=== PATIENT | male | born 1990 | race Caucasian/White ===

== ENCOUNTER → 2019-11-21 | Outpatient (CLI) | payer MEDICAID ==
[~2019-11-21] MED LIST: OMEP20TA2 PO; P20 PO; TRAM50TA3 PO
== END | disposition home or self-care (01) ==
LOC: LAB 14:21
PROVIDERS: ATTEND Ophthalmology
DX: Z01.818 Encounter for other preprocedural examination (principal); Z11.59 Encounter for screening for other viral diseases; H26.9 Unspecified cataract
CPT/HCPCS: C9803; U0003

== ENCOUNTER → 2019-11-25 | Day surgery (SDC) | payer MEDICAID ==
[~2019-11-25] VITALS: Ht 167.6 cm; Wt 74.8 kg
[~2019-11-25] MED LIST changes: +ACETYLCHOLINE CHLORIDE INTRAOCULAR SOLUTION 1:100 ELECTROLYTE DILUENT IO ONE; +BALANCED SALT IRRIG SOLN 15ML ONE; +BALANCED SALT IRRIG SOLN COMB1 500ML OP SCH; +BUPIVACAINE HCL/PF 0.75% (7.5MG/ML) 10ML ONE; +CEFAZOLIN SODIUM 1000MG/VIAL ONE; +CIPROFLOXACIN 0.3% OPHTH SOLN 2.5ML ONE; +CYCLOPENTOLATE HCL 1% OPHTH DROPS 2ML ONE; +CYCLOPENTOLATE HCL 1% OPHTH DROPS 2ML RIGHTEYE ONE; +DEXAMETHASONE 4MG/ML 1ML VIAL ONE; +FENTANYL CITRATE/PF 50MCG/ML 2ML VIAL ONE; +HYALURONATE SODIUM 10 MG/ML 0.55ML SYRINGE IO ONE; +KETOROLAC 30MG/ML VIAL ONE; +LACTATED RINGERS 1,000 ML IV SCH; +LIDOCAINE HCL 1% 20ML VIAL (Pyxis) INJ ONE; +LIDOCAINE HCL 2%/EPINEPHRINE 1:100,000 20 ML VIAL INFIL ONE; +LIDOCAINE HCL/PF 2% 20 MG/ML 10ML VIAL ONE; +MIDAZOLAM HCL 2 MG/2 ML VIAL ONE; +NEO/POLYMYX B SULF/DEXAMETH OPHTH OINT 3.5GM ONE; +PHENYLEPHRINE HCL 10% OPHTH DROPS 5ML ONE; +PHENYLEPHRINE HCL 10% OPHTH DROPS 5ML RIGHTEYE ONE; +PREDNISOLONE ACETATE 1% OPHTH DROPS 5ML ONE; +PROPOFOL 200MG/20ML VIAL IV ONE; +SODIUM CHLORIDE 0.9% 10ML VIAL ONE; +TETRACAINE 0.5% OPHTH DROPS 4ML ONE; +TRIAMCINOLONE ACETONIDE 40MG/ML 1ML VIAL ONE; +TROPICAMIDE 1% OPHTH DROPS 15ML ONE; +TROPICAMIDE 1% OPHTH DROPS 15ML RIGHTEYE ONE; +TRYPAN BLUE 0.5 ML DISP.SYRIN IO ONE
== END | disposition home or self-care (01) ==
LOC: OR 08:01
PROVIDERS: ATTEND Ophthalmology
DX: H25.89 Other age-related cataract (principal); H21.541 Posterior synechiae (iris), right eye; M06.9 Rheumatoid arthritis, unspecified; Z87.19 Personal history of other diseases of the digestive system; Z79.899 Other long term (current) drug therapy; Z98.890 Other specified postprocedural states
CPT/HCPCS: 66984; 67005; J0690; J1100; J1885; J2250; J2704; J3010; J3301; J3490; Q9957; V2632

== ENCOUNTER 2021-08-23 17:25 | Emergency (ER) | payer MEDICAID ==
[~2021-08-23] VITALS: Ht 170.2 cm; Wt 73.0 kg
[~2021-08-23 17:25] MED LIST changes: -ACETYLCHOLINE CHLORIDE INTRAOCULAR SOLUTION 1:100 ELECTROLYTE DILUENT IO ONE; -BALANCED SALT IRRIG SOLN 15ML ONE; -BALANCED SALT IRRIG SOLN COMB1 500ML OP SCH; -BUPIVACAINE HCL/PF 0.75% (7.5MG/ML) 10ML ONE; -CEFAZOLIN SODIUM 1000MG/VIAL ONE; -CIPROFLOXACIN 0.3% OPHTH SOLN 2.5ML ONE; -CYCLOPENTOLATE HCL 1% OPHTH DROPS 2ML ONE; -CYCLOPENTOLATE HCL 1% OPHTH DROPS 2ML RIGHTEYE ONE; -DEXAMETHASONE 4MG/ML 1ML VIAL ONE; -FENTANYL CITRATE/PF 50MCG/ML 2ML VIAL ONE; -HYALURONATE SODIUM 10 MG/ML 0.55ML SYRINGE IO ONE; -KETOROLAC 30MG/ML VIAL ONE; -LACTATED RINGERS 1,000 ML IV SCH; -LIDOCAINE HCL 1% 20ML VIAL (Pyxis) INJ ONE; -LIDOCAINE HCL 2%/EPINEPHRINE 1:100,000 20 ML VIAL INFIL ONE; -LIDOCAINE HCL/PF 2% 20 MG/ML 10ML VIAL ONE; -MIDAZOLAM HCL 2 MG/2 ML VIAL ONE; -NEO/POLYMYX B SULF/DEXAMETH OPHTH OINT 3.5GM ONE; -PHENYLEPHRINE HCL 10% OPHTH DROPS 5ML ONE; -PHENYLEPHRINE HCL 10% OPHTH DROPS 5ML RIGHTEYE ONE; -PREDNISOLONE ACETATE 1% OPHTH DROPS 5ML ONE; -PROPOFOL 200MG/20ML VIAL IV ONE; -SODIUM CHLORIDE 0.9% 10ML VIAL ONE; -TETRACAINE 0.5% OPHTH DROPS 4ML ONE; -TRIAMCINOLONE ACETONIDE 40MG/ML 1ML VIAL ONE; -TROPICAMIDE 1% OPHTH DROPS 15ML ONE; -TROPICAMIDE 1% OPHTH DROPS 15ML RIGHTEYE ONE; -TRYPAN BLUE 0.5 ML DISP.SYRIN IO ONE
[2021-08-23 18:05] VITALS: BP 122/74
[2021-08-23] MEDS ORDERED: ONDANSETRON HCL 4MG/2ML INJ IV STA (18:05)
[2021-08-23] MEDS ORDERED: PANTOPRAZOLE SODIUM 40 MG/VIAL IV STA (18:05)
[2021-08-23] MEDS ORDERED: MORPHINE SULFATE 4 MG/ML CPJ (NOT FOR IM USE) IV STA (18:05)
[2021-08-23] MEDS ORDERED: MAGNESIUM/ALUMINUM HYDROXIDE/SIMETHICONE 30ML UDC PO STA (18:05)
[2021-08-23] MEDS ORDERED: SODIUM CHLORIDE 0.9% 1,000 ML IV ONE (18:15)
[2021-08-23 19:50] LABS: BASOPHILS % 0.7 % (0.0-2.0); EOSINOPHILS % 0.1 % (0.0-5.0); HEMOGLOBIN. 13.9 g/dL (14.0-18.0); LYMPHOCYTES % 10.4 % (20.0-50.0); MEAN CORPUSCULAR HEMOGLOBIN 27.1 pg (28.0-32.0); MEAN CORPUSCULAR VOLUME 83.8 fL (80.0-94.0); MEAN PLATELET VOLUME 7.3 fl (7.4-10.4); MONOCYTES % 6.3 % (2.0-8.0); NEUTROPHILS % 82.5 % (40.0-76.0); PLATELET 301 x1000/uL (130-400); RED BLOOD CELL COUNT 5.13 mill/uL (4.7-6.1); RED CELL DISTRIBUTION WIDTH 16.9 % (11.6-14.6)
[2021-08-23 19:57] LABS: CHLORIDE 104 mEq/L (98-107)
[2021-08-23 20:06] LABS: ETHANOL BLOOD < 10 mg/dL
[2021-08-23 22:14] LABS: CLARITY URINE CLEAR (CLEAR); COLOR URINE YELLOW (YELLOW); KETONES URINE NEGATIVE (NEGATIVE); LEUKOCYTE ESTERASE URINE TRACE (NEGATIVE); NITRITE URINE NEGATIVE (NEGATIVE); OCCULT BLOOD URINE NEGATIVE (NEGATIVE); PH URINE 7.5 (4.5-8.0); PROTEIN URINE TRACE (NEGATIVE); SPECIFIC GRAVITY URINE 1.027 (1.005-1.030); UROBILINOGEN URINE 0.2 E.U./dL (0.2-1.0)
[2021-08-23 22:27] LABS: *AMPHETAMINES SCREEN URINE NEGATIVE (NEGATIVE); *BARBITURATES SCREEN URINE NEGATIVE (NEGATIVE); *BENZODIAZEPINES SCREEN URINE NEGATIVE (NEGATIVE); *COCAINE SCREEN URINE NEGATIVE (NEGATIVE); CANNABINOID URINE SCREEN PRESUMTIVE POSITIVE (NEGATIVE); METHADONE URINE SCREEN NEGATIVE (NEGATIVE); OPIATES URINE SCREEN NEGATIVE (NEGATIVE); PHENCYCLIDINE URINE SCREEN NEGATIVE (NEGATIVE)
== END 2021-08-23 23:36 | disposition left against medical advice (07) ==
LOC: ER 17:25
DX: R10.31 Right lower quadrant pain (principal); R11.2 Nausea with vomiting, unspecified; Z13.9 Encounter for screening, unspecified
CPT/HCPCS: 36415; 71045; 74176; 80053; 80305; 80320; 81003; 83605; 83690; 85025; 86850; 86870; 86900; 86901; 87040; 99285; J7030; G0480

== ENCOUNTER → 2024-10-28 | Day surgery (SDC) | payer MEDICARE, MEDICAID ==
[~2024-10-28] VITALS: Ht 160 cm; Wt 88.0 kg
[~2024-10-28] MED LIST changes: +BALANCED SALT IRRIG SOLN 15ML ONE; +BALANCED SALT IRRIG SOLN COMB1 500ML OP SCH; +CHOL500051 PO; +FENTANYL CITRATE/PF 50MCG/ML 2ML VIAL ONE; +HYALURONATE SODIUM 10MG/ML 0.55ML SYRINGE IO ONE; +LACTATED RINGERS 1,000 ML IV SCH; +MELO-106 PO; +METH2.5T MT; +MIDAZOLAM HCL 2 MG/2 ML VIAL ONE; -OMEP20TA2 PO; +OMEP20TA23 PO; +ONDANSETRON HCL 4MG/2ML INJ ONE; -P20 PO; +PRED5DRO22 BOTHEYE; +PRED5TAB PO; +TRIAMCINOLONE ACETONIDE 40MG/ML 1ML VIAL ONE; +[UNRECOGNIZED DRUG - OTHER] IV
[2024-10-28 07:06] LABS: BASOPHILS % 1.0 % (0.0-2.0); EOSINOPHILS % 5.3 % (0.0-5.0); HEMATOCRIT. 37.8 % (42.0-52.0); HEMOGLOBIN. 12.7 g/dL (14.0-18.0); LYMPHOCYTES % 42.3 % (20.0-50.0); MEAN PLATELET VOLUME 7.5 fl (7.4-10.4); MONOCYTES % 9.7 % (2.0-8.0); NEUTROPHILS % 41.7 % (40.0-76.0); PLATELET 198 x1000/uL (130-400); RED BLOOD CELL COUNT 4.48 mill/uL (4.7-6.1); RED CELL DISTRIBUTION WIDTH 18.4 % (11.6-14.6)
[2024-10-28 07:15] LABS: CREATININE 0.8 mg/dL (0.6-1.3); UREA NITROGEN BLOOD 18 mg/dL (9-23)
== END | disposition home or self-care (01) ==
LOC: OR 06:33
PROVIDERS: ATTEND Ophthalmology
DX: H21.41 Pupillary membranes, right eye (principal); M19.90 Unspecified osteoarthritis, unspecified site; Z86.2 Personal history of diseases of the blood and blood-forming organs and certain disorders involving the immune mechanism; Z79.899 Other long term (current) drug therapy; Z98.890 Other specified postprocedural states
CPT/HCPCS: 66600; 80048; 85025; 36415; J3010; J3490 ×3; J2250; J2405; J3301